=== PATIENT | male | born 1955 | race Caucasian/White ===

== ENCOUNTER → 2016-10-08 | Outpatient (CLI) | payer OTHER | END | disposition home or self-care (01) | LOC: ORTHO 03:51 | DX: M16.11 Unilateral primary osteoarthritis, right hip (principal); M79.9 Soft tissue disorder, unspecified ==

== ENCOUNTER → 2017-05-05 | Outpatient (CLI) | payer OTHER | END | disposition home or self-care (01) | LOC: ORTHO 03:33 | DX: M25.551 Pain in right hip (principal) ==

== ENCOUNTER → 2017-11-14 | Outpatient (CLI) | payer OTHER | END | disposition home or self-care (01) | LOC: ORTHO 04:53 | DX: M70.62 Trochanteric bursitis, left hip (principal) ==

== ENCOUNTER → 2018-07-28 | Outpatient (CLI) | payer OTHER | END | disposition home or self-care (01) | LOC: ORTHO 00:51 | DX: M70.62 Trochanteric bursitis, left hip (principal) ==

== ENCOUNTER 2019-05-02 11:57 | Inpatient (IN) | payer MEDICARE ==
[~2019-05-02] VITALS: Ht 182.8 cm; Wt 105.0 kg
[2019-05-02 11:59] VITALS: BP 158/78
[2019-05-02 12:15] VITALS: BP 124/78
[2019-05-02 12:30] LABS: BASO % 0.2 % (0.0-1.0); EOS # 0.2 10*3/uL (0.0-0.4); EOS % 1.7 % (1.0-4.0); HEMATOCRIT 44.8 % (42.0-52.0); HEMOGLOBIN 15.5 g/dl (14.0-18.0); LYMPH % 45.9 % (27.0-41.0); MEAN CELL VOLUME 87.5 fl (80.0-94.0); MEAN CORPUSCULAR HGB 30.3 pg (27.0-31.0); MEAN CORPUSCULAR HGB CONC 34.6 g/dl (33.0-37.0); MEAN PLATELET VOLUME 9.4 fl (9.6-12.3); MONO # 0.7 10*3/uL (0.1-1.0); MONO % 7.6 % (3.0-9.0); NEUT # 3.9 10*3/uL (2.3-7.9); NEUT % 44.4 % (47.0-73.0); PLATELET COUNT AUTOMATED 223 10*3/uL (130-400); RED BLOOD COUNT 5.12 10*6/uL (4.50-5.90); RED CELL DISTRI WIDTH 13.2 % (0-14.5); WHITE BLOOD COUNT 8.7 10*3/uL (4.8-10.8)
[2019-05-02 12:40] LABS: ACT PARTIAL THROMBO TIME 25.8 SECONDS (20.0-32.1)
[2019-05-02 12:47] LABS: ALBUMIN 4.2 gm/dl (3.1-4.5); ALKALINE PHOSPHATASE 74 U/L (45-117); BUN 19 mg/dl (7-24); CHLORIDE 104 mmol/L (98-107); CREATININE 1.01 mg/dL (0.70-1.30); POTASSIUM 3.4 mmol/L (3.5-5.1); SGOT/AST 20 IU/L (3-35); SGPT/ALT 66 U/L (12-78); SODIUM 137 mmol/L (136-145); TOTAL PROTEIN 7.4 gm/dL (6.4-8.2)
[2019-05-02 12:49] LABS: TROPONIN I < 0.015 ng/ml (<0.045)
[2019-05-02 14:20] VITALS: BP 136/84
--- NOTE | 2019-05-02 14:20 | NUR ---
A 64, admitted to , under the services of ANDRES Horton DO with a diagnosis of PALPITATIONS,SNYCOPE. Chief complaint is DIZZY,HEART FELT FUNNY. Patient arrived via stretcher from ER. Monitor applied. Initial assessment completed. Vital signs taken and recorded. ANDRES HORTON DO notified of admission to the unit. Orders received. See assessment for past medical history, medications and allergies. Patient and/or family oriented to unit. [facility] reviewed. Clothing/patient valuable form completed. GATO PETERSEN
--- NOTE | 2019-05-02 14:54 | NUR ---
[facility] AWARE OF CONSULT.
[2019-05-02] MEDS ORDERED: CARDIZEM CD300 MG PO (15:23)
[2019-05-02] MEDS ORDERED: MOBIC7.5 MG PO (15:24)
[2019-05-02] MEDS ORDERED: HYDR25T PO (15:25)
[2019-05-02] MEDS ORDERED: LISINOPRIL20 MG PO (15:25)
[2019-05-02] MEDS ORDERED: ZOLPIDEM10 MG PO (15:28)
[2019-05-02] MEDS ORDERED: MASON NATURAL600 MG PO (15:30)
[2019-05-02] MEDS ORDERED: PAN-C 500 TABL1 EACH PO (15:31)
[2019-05-02] MEDS ORDERED: ASPIR LOW81 MG PO (15:32)
[2019-05-02] MEDS ORDERED: FISH OIL 1,0001 EAC4 PO (15:32)
[2019-05-02] MEDS ORDERED: [UNRECOGNIZED DRUG - OTHER] PO (15:35)
[2019-05-02 16:00] VITALS: BP 129/82
--- NOTE | 2019-05-02 16:00 | NUR ---
DR. KING IN ROOM WITH PATIENT. NEW MED ORDER.
[2019-05-02 20:00] VITALS: BP 126/71; BP 128/68
[2019-05-03] VITALS: BP 122/78
--- NOTE | 2019-05-03 | NUR ---
PATIENT RESTING WITH EYES CLOSED. RESPIRATIONS EASY AND UNLABORED. CALL LIGHT WITHIN REACH. WILL MONITOR.
--- NOTE | 2019-05-03 01:55 | NUR ---
24 HR chart check completed.
[2019-05-03 06:39] LABS: BASO % 0.3 % (0.0-1.0); EOS # 0.2 10*3/uL (0.0-0.4); EOS % 2.2 % (1.0-4.0); HEMATOCRIT 46.5 % (42.0-52.0); HEMOGLOBIN 15.5 g/dl (14.0-18.0); LYMPH # 3.1 10*3/uL (1.3-4.4); LYMPH % 39.9 % (27.0-41.0); MEAN CELL VOLUME 88.4 fl (80.0-94.0); MEAN CORPUSCULAR HGB 29.5 pg (27.0-31.0); MEAN CORPUSCULAR HGB CONC 33.3 g/dl (33.0-37.0); MEAN PLATELET VOLUME 9.7 fl (9.6-12.3); MONO # 0.6 10*3/uL (0.1-1.0); MONO % 7.5 % (3.0-9.0); NEUT # 3.9 10*3/uL (2.3-7.9); PLATELET COUNT AUTOMATED 224 10*3/uL (130-400); RED BLOOD COUNT 5.26 10*6/uL (4.50-5.90); RED CELL DISTRI WIDTH 13.2 % (0-14.5); WHITE BLOOD COUNT 7.8 10*3/uL (4.8-10.8)
[2019-05-03 06:58] LABS: CHLORIDE 104 mmol/L (98-107); POTASSIUM 3.8 mmol/L (3.5-5.1); SODIUM 138 mmol/L (136-145)
[2019-05-03 07:06] LABS: ALBUMIN 3.9 gm/dl (3.1-4.5); ALKALINE PHOSPHATASE 68 U/L (45-117); BUN 14 mg/dl (7-24); CHOLESTEROL 252 mg/dL (<200); CREATININE 0.89 mg/dL (0.70-1.30); FREE T4 0.97 ng/dl (0.76-1.46); HDL CHOLESTEROL 44 mg/dl (40-60); LDL CHOLESTEROL 172 mg/dL (9-159); PHOSPHOROUS 3.6 mg/dL (2.5-4.9); SGOT/AST 22 IU/L (3-35); SGPT/ALT 63 U/L (12-78); TOTAL PROTEIN 7.2 gm/dL (6.4-8.2); TRIGLYCERIDES 180 mg/dl (<150); VLDL CHOLESTEROL 36 mg/dL (6-40)
[2019-05-03 08:00] VITALS: BP 120/72
--- NOTE | 2019-05-03 09:00 | NUR ---
Patrol Man in to talk to patient. Patient states lives at home with . There are few steps in the home. Physician: analilia spivey Pharmacy: [facility] Home health services: none Patient's level of ADLs: INDEPENDENT Patient has working utilities: all working DME: none Follow-up physician's appointment after d/c: will be made by hospitalist nurse director upon discharge Does patient want to access PORTAL?: no Discharge plan discussed with patient, he states he lives at home with his , he is independent in adls and ambulation, drives, he will return home with no home needs, he will have an echo today and will be evaluated by cardiology for any outpatient needs. CHELSEA VERDUZCO
[2019-05-03 09:50] LABS: VITAMIN D, 25-HYDROXY 39.9 ng/mL (30-100)
[2019-05-03 12:00] VITALS: BP 125/75
[2019-05-03 16:00] VITALS: BP 112/68
[2019-05-03] MEDS ORDERED: ATORVASTATIN CA40 M1 PO (16:03)
--- NOTE | 2019-05-03 17:00 | NUR ---
[facility] Discharge instructions reviewed with patient/family. Patient receptive and verbalizes understanding. Follow-up care arranged. Written instructions given to patient/family. EVENS ALEXANDER
== END 2019-05-03 17:00 | disposition home or self-care (01) | DRG 74 ==
LOC: ED 11:57 → EDHOLD 13:53 → 4E 13:53
PROVIDERS: Emergency Medicine; Registered Nurse; ADMIT Internal Medicine
DX: G90.8 Other disorders of autonomic nervous system (principal); R00.2 Palpitations; E87.6 Hypokalemia; I10 Essential (primary) hypertension; E78.00 Pure hypercholesterolemia, unspecified; M19.90 Unspecified osteoarthritis, unspecified site; I07.1 Rheumatic tricuspid insufficiency; N40.0 Benign prostatic hyperplasia without lower urinary tract symptoms; R73.9 Hyperglycemia, unspecified; E78.5 Hyperlipidemia, unspecified; Z91.041 Radiographic dye allergy status; Z82.0 Family history of epilepsy and other diseases of the nervous system; Z79.899 Other long term (current) drug therapy; Z79.82 Long term (current) use of aspirin

== ENCOUNTER 2022-03-25 16:01 | Emergency (ER) | payer MEDICARE ==
[~2022-03-25] VITALS: Ht 182.8 cm; Wt 104.3 kg
[~2022-03-25 16:01] MED LIST: ASPIR LOW81 MG PO; ATORVASTATIN CA40 M1 PO; CARDIZEM CD300 MG PO; FISH OIL 1,0001 EAC4 PO; HYDR25T PO; LISINOPRIL20 MG PO; MASON NATURAL600 MG PO; MOBIC7.5 MG PO; PAN-C 500 TABL1 EACH PO; ZOLPIDEM10 MG PO; [UNRECOGNIZED DRUG - OTHER] PO
[2022-03-25] MEDS ORDERED: TAMIFLU 75MG CA75 MG PO (18:48)
== END 2022-03-25 18:42 | disposition home or self-care (01) ==
LOC: ED 16:01
DX: J10.1 Influenza due to other identified influenza virus with other respiratory manifestations (principal); Z79.899 Other long term (current) drug therapy; Z90.89 Acquired absence of other organs; Z98.890 Other specified postprocedural states

== ENCOUNTER 2024-09-02 17:40 | Emergency (ER) | payer MEDICARE ==
[~2024-09-02] VITALS: Ht 182.8 cm; Wt 108.9 kg
[~2024-09-02 17:40] MED LIST changes: +TAMIFLU 75MG CA75 MG PO
[2024-09-02] MEDS ORDERED: ZETIA10 MG PO (17:50)
[2024-09-02] MEDS ORDERED: TAMSULOSIN HCL0.4 MG PO (17:50)
[2024-09-02] MEDS ORDERED: PRAVASTATIN SOD20 MG PO (17:51)
[2024-09-02] MEDS ORDERED: VALSARTAN-HCTZ1 EAC2 PO (17:51)
[2024-09-02] MEDS ORDERED: METOPROLOL SUCC50 M1 PO (17:52)
[2024-09-02] MEDS ORDERED: Meclizine Hydrochloride 25 MG TAB PO ONE (18:00)
[2024-09-02] MEDS ORDERED: diazePAM 5 MG TAB PO ONE (18:00)
[2024-09-02] MEDS ORDERED: SODIUM CHLORIDE 0.9% 1,000 ML IV ONE (18:00)
[2024-09-02 18:12] LABS: BASO % 0.4 % (0.0-1.0); EOS # 0.2 10*3/uL (0.0-0.4); HEMATOCRIT 46.5 % (42.0-52.0); MEAN CELL VOLUME 89.9 fl (80.0-94.0); MEAN CORPUSCULAR HGB 30.2 pg (27.0-31.0); MEAN CORPUSCULAR HGB CONC 33.5 g/dl (33.0-37.0); MEAN PLATELET VOLUME 9.6 fl (9.6-12.3); MONO # 0.6 10*3/uL (0.1-1.0); MONO % 7.8 % (3.0-9.0); NEUT # 4.1 10*3/uL (2.3-7.9); NEUT % 49.6 % (47.0-73.0); PLATELET COUNT AUTOMATED 183 10*3/uL (130-400); RED BLOOD COUNT 5.17 10*6/uL (4.50-5.90); RED CELL DISTRI WIDTH 13.2 % (0-14.5); WHITE BLOOD COUNT 8.2 10*3/uL (4.8-10.8)
[2024-09-02 18:31] LABS: BUN 19 mg/dl (9-23); CHLORIDE 103 mmol/L (98-107); POTASSIUM 3.6 mmol/L (3.4-5.1)
[2024-09-02] MEDS ORDERED: ANTIVERT25 M2 PO (18:38)
== END 2024-09-02 18:43 | disposition home or self-care (01) ==
LOC: ED 17:40
PROVIDERS: Emergency Medicine
DX: H81.10 Benign paroxysmal vertigo, unspecified ear (principal); R11.2 Nausea with vomiting, unspecified; I10 Essential (primary) hypertension; E78.5 Hyperlipidemia, unspecified; Z91.041 Radiographic dye allergy status; Z79.82 Long term (current) use of aspirin; Z79.899 Other long term (current) drug therapy; Z98.890 Other specified postprocedural states; Z90.89 Acquired absence of other organs